=== PATIENT | male | born 1995 | race Caucasian/White ===

== ENCOUNTER 2021-10-06 20:14 | Emergency (ER) | payer MEDICAID, OTHER ==
[2021-10-06] MEDS ORDERED: Sodium Chloride 0.9% 10 ML Syringe FLUSH PRN (21:04)
[2021-10-06] MEDS ORDERED: Haloperidol Lactate 5 MG/ML SDV IVPUSH ONE (21:04)
[2021-10-06] MEDS ORDERED: Sodium Chloride 0.9% 1,000 ML IV SCH ×2 (21:15→21:45)
[2021-10-06 21:24] LABS: ESTIMATED GFR 97 mL/min (>60)
== END 2021-10-06 23:10 | disposition home or self-care (01) ==
LOC: JP.ED 20:14
DX: R11.2 Nausea with vomiting, unspecified (principal); F12.10 Cannabis abuse, uncomplicated; E86.0 Dehydration; F17.210 Nicotine dependence, cigarettes, uncomplicated; Z20.822 Contact with and (suspected) exposure to COVID-19
CPT/HCPCS: 36415; 80053; 83735; 85025; 87635; 96361; 96374; 99284; J1630; J7030; 99283; U0002

== ENCOUNTER 2022-11-18 18:36 | Emergency (ER) | payer OTHER | END 2022-11-18 19:45 | disposition left against medical advice (07) | LOC: JP.ED 18:36 | DX: Z53.21 Procedure and treatment not carried out due to patient leaving prior to being seen by health care provider (principal) ==

== ENCOUNTER 2023-10-13 12:04 | Emergency (ER) | payer OTHER ==
[2023-10-13 13:03] LABS: BASOPHILS PERCENT AUTO 0.2 % (0.1-1.3); HEMATOCRIT 44.1 % (38.4-49.7); IMMATURE GRAN ABSOLUTE AUTO 0.07 K/uL (0.00-0.23); IMMATURE GRAN PERCENT AUTO 0.6 % (0.0-0.7); LYMPHOCYTES PERCENT AUTO 8.8 % (11.4-47.7); MEAN CORPUSCULAR HEMOGLOBIN 30.5 pg (31.6-35.5); MEAN CORPUSCULAR HGB CONC 36.3 g/dL (31.6-35.5); MEAN CORPUSCULAR VOLUME 84.2 fL (81.4-99.0); MONOCYTES ABSOLUTE AUTO 0.45 K/uL (0.20-0.90); MONOCYTES PERCENT AUTO 3.6 % (3.3-12.6); NEUTROPHILS ABSOLUTE AUTO 10.91 K/uL (1.0-7.6); NEUTROPHILS PERCENT AUTO 86.8 % (40.0-78.1); PLATELET COUNT,PLT 226 K/uL (130-375); RED BLOOD CELL COUNT 5.24 M/uL (4.14-5.76); WHITE BLOOD CELL COUNT,WBC 12.6 K/uL (3.2-11.0)
[2023-10-13 13:04] LABS: BASE EXCESS VENOUS 1.8 mm/L; BICARBONATE,VENOUS 24.7 mmol/L; CARBOXYHEMOGLOBIN 2.6 % (0.0-1.6); METHEMOGLOBIN 0.8 %; O2 SATURATION VENOUS 64.6; OXYHEMOGLOBIN 62.4 %; PCO2 VENOUS 35.2 mm/Hg; TOTAL HEMOGLOBIN 16.9 g/dL (13.5-18.0)
[2023-10-13] MEDS: Prochlorperazine 10 MG/2 ML SDV IVPUSH ONE (13:06)
[2023-10-13] MEDS: Sodium Chloride 0.9% 1,000 ML IV ONE (13:06)
[2023-10-13 13:08] LABS: BASOPHILS ABSOLUTE AUTO 0.02 K/uL (0.00-0.10); PO2 VENOUS 33.8 mm/Hg
[2023-10-13 13:18] LABS: A/G RATIO 1.4 (1.2-2.2); ALANINE AMINOTRANSFERASE,ALT 27 U/L (12-78); ALBUMIN 4.7 g/dL (3.4-5.0); ALKALINE PHOSPHATASE 85 U/L (46-116); ANION GAP 12.2 mmol/L (5.0-14.0); ASPARTATE AMNIOTRANSFERASE,AST 16 U/L (15-37); BILIRUBIN TOTAL 0.6 mg/dL (0.2-1.0); BLOOD UREA NITROGEN,BUN 17 mg/dL (7-18); CALCIUM 9.5 mg/dL (8.5-10.1); CARBON DIOXIDE,CO2 26 mmol/L (21-32); CHLORIDE,CL 104 mmol/L (100-108); CREATININE 0.9 mg/dL (0.8-1.3); EST CRCL DRUG DOSING (CG) 113.23 mL/min; ESTIMATED GFR 122 mL/min (>60); GLUCOSE RANDOM 169 mg/dL (74-106); POTASSIUM,K 3.9 mmol/L (3.6-5.2); SODIUM,NA 142 mmol/L (140-148)
[2023-10-13 13:22] LABS: C-REACTIVE PROTEIN < 0.50 mg/dL (<0.50)
[2023-10-13] MEDS: Sodium Chloride 0.9% 10 ML Syringe FLUSH ONE (14:22)
[2023-10-13] MEDS: Iopamidol 612 MG/ML 100 ML Bottle IV SCH (14:22)
[2023-10-13] MEDS: Sodium Chloride 0.9% 100 ML IV SCH (14:30)
[2023-10-13 16:12] LABS: APPEARANCE,URINE CLEAR (CLEAR); BILIRUBIN,URINE NEGATIVE (NEGATIVE); COLOR,URINE YELLOW (YELLOW); GLUCOSE,URINE NEGATIVE (NEGATIVE); KETONES,URINE NEGATIVE (NEGATIVE); LEUKOCYTE ESTERASE,URINE NEGATIVE (NEGATIVE); NITRITE,URINE NEGATIVE (NEGATIVE); OCCULT BLOOD,URINE TRACE-INTACT (NEGATIVE); PH,URINE 8.5 (5.0-8.0); PROTEIN,URINE NEGATIVE (NEGATIVE); UROBILINOGEN,URINE 0.2 EU/dL (0.2-1.0)
[2023-10-13 16:16] LABS: AMORPHOUS SEDIMENT,URINE NOT SEEN; BACTERIA,URINE RARE; EPITHELIAL CELLS,URINE RARE; MUCUS,URINE RARE; RBC,URINE 0-5 (0-5); WBC,URINE 0-5 (0-5)
[2023-10-13 16:36] LABS: AMPHETAMINES SCREEN, URINE NEGATIVE (NEGATIVE); BARBITURATE SCREEN,URINE NEGATIVE (NEGATIVE); BENZODIAZEPINES SCREEN,URINE NEGATIVE (NEGATIVE); METHADONE SCREEN, URINE NEGATIVE (NEGATIVE); METHAMPHETAMINES SCREEN, URINE NEGATIVE (NEGATIVE); OXYCODONE SCREEN,URINE NEGATIVE (NEGATIVE); PROPOXYPHENE SCREEN,URINE NEGATIVE (NEGATIVE); THC SCREEN,URINE 50 NG/ML PRESUMPTIVE POSITIVE (NEGATIVE)
== END 2023-10-13 18:50 | disposition home or self-care (01) ==
LOC: JP.ED 12:04
DX: R11.2 Nausea with vomiting, unspecified (principal)
CPT/HCPCS: 36415; 74177; 80053; 80305; 80307; 81001; 82803; 83605; 83690; 84145; 85025; 86140; 96361; 96374; 99284; J0780; J3490; J7030; Q9967